=== PATIENT | female | born 1995 | race Caucasian/White ===

== ENCOUNTER 2024-01-17 15:12 | Emergency (ER) | payer OTHER ==
[~2024-01-17] VITALS: Ht 157.4 cm
[2024-01-17] MEDS ORDERED: NITROGLYCERIN0.4 MG SL (15:26)
[2024-01-17] MEDS ORDERED: TIZANIDINE HCL4 MG PO (15:26)
[2024-01-17] MEDS ORDERED: FLUOXETINE HYDR20 M1 PO (15:27)
[2024-01-17] MEDS ORDERED: OMEPRAZOLE40 MG PO (15:28)
[2024-01-17] MEDS ORDERED: Lopressor25 MG PO (15:29)
[2024-01-17] MEDS ORDERED: ATORVASTATIN CA80 M1 PO (15:29)
[2024-01-17] MEDS ORDERED: BUSPAR15 MG PO (15:30)
[2024-01-17] MEDS ORDERED: FEROSUL325 M1 PO (15:31)
[2024-01-17] MEDS ORDERED: ZETIA10 MG PO (15:32)
[2024-01-17] MEDS ORDERED: LEVOTHYROXINE25 MCG PO (15:32)
[2024-01-17] MEDS ORDERED: [UNRECOGNIZED DRUG - OTHER] SC (15:33)
[2024-01-17] MEDS ORDERED: Ketorolac Tromethamine 15 MG/ML VIAL IV ONE (16:00)
[2024-01-17] MEDS ORDERED: SODIUM CHLORIDE 0.9% 1,000 ML IV ONE (16:00)
[2024-01-17] MEDS ORDERED: FAMOTIDINE 50 ML IV ONE (16:05)
[2024-01-17 16:15] LABS: BASO # 0.1 10*3/uL (0.0-0.1); BASO % 2.1 % (0.0-1.0); EOS # 0.1 10*3/uL (0.0-0.4); EOS % 2.8 % (1.0-4.0); HEMATOCRIT 35.2 % (37.0-47.0); LYMPH # 1.4 10*3/uL (1.3-4.4); LYMPH % 32.6 % (27.0-41.0); MEAN CELL VOLUME 81.3 fl (81.0-99.0); MEAN CORPUSCULAR HGB 27.3 pg (27.0-31.0); MEAN CORPUSCULAR HGB CONC 33.5 g/dl (33.0-37.0); MEAN PLATELET VOLUME 10.9 fl (9.6-12.3); MONO # 0.6 10*3/uL (0.1-1.0); MONO % 13.9 % (3.0-9.0); NEUT # 2.1 10*3/uL (2.3-7.9); NEUT % 47.7 % (47.0-73.0); PLATELET COUNT AUTOMATED 206 10*3/uL (130-400); RED BLOOD COUNT 4.33 10*6/uL (4.10-5.10); RED CELL DISTRI WIDTH 14.1 % (0-14.5); WHITE BLOOD COUNT 4.3 10*3/uL (4.8-10.8)
[2024-01-17 16:36] LABS: BUN 10 mg/dl (9-23); CHLORIDE 102 mmol/L (98-107); POTASSIUM 3.5 mmol/L (3.4-5.1)
[2024-01-17] MEDS ORDERED: HYDROmorphONE Hydrochloride 1 MG/ML SYR IM ONE (16:50)
[2024-01-17] MEDS ORDERED: Ondansetron Hydrochloride 4 MG/2 ML VIAL IM ONE (16:50)
== END 2024-01-17 17:38 | disposition home or self-care (01) ==
LOC: ED 15:12
PROVIDERS: Emergency Medicine
DX: R07.89 Other chest pain (principal); R00.2 Palpitations; Z88.2 Allergy status to sulfonamides; Z88.5 Allergy status to narcotic agent; Z88.8 Allergy status to other drugs, medicaments and biological substances

== ENCOUNTER 2024-04-20 21:06 | Emergency (ER) | payer OTHER ==
[~2024-04-20] VITALS: Ht 157.4 cm; Wt 94.8 kg
[~2024-04-20 21:06] MED LIST: ATORVASTATIN CA80 M1 PO; BUSPAR15 MG PO; FEROSUL325 M1 PO; FLUOXETINE HYDR20 M1 PO; LEVOTHYROXINE25 MCG PO; Lopressor25 MG PO; NITROGLYCERIN0.4 MG SL; OMEPRAZOLE40 MG PO; TIZANIDINE HCL4 MG PO; ZETIA10 MG PO; [UNRECOGNIZED DRUG - OTHER] SC
[2024-04-20] MEDS ORDERED: CARDIZEM CD240 M1 PO (21:26)
[2024-04-20] MEDS ORDERED: PROZAC40 M1 PO (21:26)
[2024-04-20 21:56] LABS: BASO # 0.1 10*3/uL (0.0-0.1); BASO % 1.1 % (0.0-1.0); EOS # 0.1 10*3/uL (0.0-0.4); EOS % 1.5 % (1.0-4.0); HEMATOCRIT 36.3 % (37.0-47.0); MEAN CELL VOLUME 81.8 fl (81.0-99.0); MEAN CORPUSCULAR HGB CONC 30.6 g/dl (33.0-37.0); MEAN PLATELET VOLUME 11.4 fl (9.6-12.3); MONO # 0.4 10*3/uL (0.1-1.0); NEUT # 3.9 10*3/uL (2.3-7.9); NEUT % 59.8 % (47.0-73.0); PLATELET COUNT AUTOMATED 304 10*3/uL (130-400); RED BLOOD COUNT 4.44 10*6/uL (4.10-5.10); RED CELL DISTRI WIDTH 14.6 % (0-14.5); WHITE BLOOD COUNT 6.5 10*3/uL (4.8-10.8)
[2024-04-20 22:07] LABS: ACT PARTIAL THROMBO TIME 21.1 SECONDS (20.0-32.1)
[2024-04-20 22:11] LABS: BUN 8 mg/dl (9-23); CHLORIDE 107 mmol/L (98-107); POTASSIUM 3.9 mmol/L (3.4-5.1)
[2024-04-20] MEDS ORDERED: HYDROmorphONE Hydrochloride 0.5 MG/0.5 ML SYRINGE IM ONE (22:30)
[2024-04-20] MEDS ORDERED: diphenhydrAMINE hydrochloride 50 MG/ML VIAL IV ONE (23:10)
== END 2024-04-21 01:31 | disposition home or self-care (01) ==
LOC: ED 21:06
PROVIDERS: Internal Medicine
DX: R00.2 Palpitations (principal); R10.2 Pelvic and perineal pain; Z88.2 Allergy status to sulfonamides; Z88.5 Allergy status to narcotic agent; Z88.8 Allergy status to other drugs, medicaments and biological substances

== ENCOUNTER 2024-04-25 05:56 | Emergency (ER) | payer OTHER ==
[~2024-04-25] VITALS: Ht 157.4 cm; Wt 94.8 kg
[~2024-04-25 05:56] MED LIST changes: +CARDIZEM CD240 M1 PO; +PROZAC40 M1 PO
[2024-04-25 06:59] LABS: BASO # 0.1 10*3/uL (0.0-0.1); BASO % 1.4 % (0.0-1.0); EOS # 0.2 10*3/uL (0.0-0.4); EOS % 2.3 % (1.0-4.0); HEMATOCRIT 33.2 % (37.0-47.0); MEAN CORPUSCULAR HGB 24.9 pg (27.0-31.0); MEAN CORPUSCULAR HGB CONC 30.4 g/dl (33.0-37.0); MEAN PLATELET VOLUME 10.5 fl (9.6-12.3); MONO # 0.5 10*3/uL (0.1-1.0); MONO % 7.3 % (3.0-9.0); NEUT # 3.5 10*3/uL (2.3-7.9); NEUT % 53.7 % (47.0-73.0); PLATELET COUNT AUTOMATED 281 10*3/uL (130-400); RED BLOOD COUNT 4.05 10*6/uL (4.10-5.10); RED CELL DISTRI WIDTH 14.6 % (0-14.5); WHITE BLOOD COUNT 6.4 10*3/uL (4.8-10.8)
[2024-04-25 07:09] LABS: ACT PARTIAL THROMBO TIME 26.6 SECONDS (20.0-32.1)
[2024-04-25] MEDS ORDERED: Ondansetron Hydrochloride 4 MG/2 ML VIAL IV ONE (07:20)
[2024-04-25] MEDS ORDERED: HYDROmorphONE Hydrochloride 1 MG/ML SYR IV ONE (07:20)
[2024-04-25 07:29] LABS: BUN 10 mg/dl (9-23); CHLORIDE 108 mmol/L (98-107); POTASSIUM 3.5 mmol/L (3.4-5.1)
== END 2024-04-25 08:02 | disposition home or self-care (01) ==
LOC: ED 05:56
PROVIDERS: Internal Medicine
DX: R07.9 Chest pain, unspecified (principal); R06.02 Shortness of breath; R11.0 Nausea; Z88.8 Allergy status to other drugs, medicaments and biological substances; Z88.2 Allergy status to sulfonamides; Z88.5 Allergy status to narcotic agent; Z79.899 Other long term (current) drug therapy